=== PATIENT | female | born 1975 | race Two or more races ===

== ENCOUNTER → 2016-10-06 | Outpatient (CLI) | payer OTHER ==
--- NOTE | 2016-10-06 15:01 | RAD ---
EXAM: DIGITAL SCREEN BILAT W/CAD HISTORY: Routine Screening. COMPARISON: None available Standard mammographic views are obtained of the bilateral breasts. This study was interpreted with the benefit of Computerized Aided Detection (CAD). FINDINGS: The breast parenchyma Is heterogenously dense, which could reduce sensitivity of mammography. Breast parenchyma level III.. There is a faintly visualized cluster of calcifications within the right anterior breast just superior to the nipple. Within the left breast there is calcification seen scattered throughout the glandular tissue posterior and superior to the nipple. IMPRESSION: There are bilateral breast calcifications identified. There is no comparison available for review to assess whether these are new findings or chronic therefore would return for diagnostic mammogram of the bilateral breasts to further evaluate the regions of calcification. BI-RADS CATEGORY: 0 NEED ADD'L IMAGE/PRIOR MAMMO RECOMMENDED FOLLOW-UP: ADD ADDITIONAL IMAGING PQRS compliance statement: Patient information was entered into a reminder system with a target due date for the next mammogram. Mammography is a sensitive method for finding small breast cancers, but it does not detect them all and is not a substitute for careful clinical examination. A negative mammogram does not negate a clinically suspicious finding and should not result in delay in biopsying a clinically suspicious abnormality. "Our facility is accredited by the [employer] Mammography Program."
== END | disposition home or self-care (01) ==
LOC: MAMMO 14:23
PROVIDERS: ATTEND Nurse Practitioner
DX: Z12.31 Encounter for screening mammogram for malignant neoplasm of breast (principal)
CPT/HCPCS: G0202; 77067

== ENCOUNTER → 2016-10-23 | Outpatient (CLI) | payer OTHER ==
--- NOTE | 2016-10-24 13:44 | RAD ---
DATE: 10/23/2016 EXAM: DIGITAL DIAGNOSTIC BILATERAL HISTORY: Calcifications seen within both breasts on recent screening mammogram. COMPARISON: 10/06/2016 This study was interpreted with the benefit of Computerized Aided Detection (CAD ). FINDINGS: Spot compression magnification CC and true lateral digital mammograms of both breasts were obtained. Comparison study is dated 10/06/2016. Calcifications are seen scattered throughout the upper outer quadrants of both breasts. They have a probably benign appearance. No definite malignant- appearing calcifications are seen. IMPRESSION: Probably benign appearing calcifications are seen in the upper quadrants of both breasts. A repeat diagnostic mammogram of both breasts in 6 months is recommended to document their stability. BI-RADS CATEGORY: 3 PROBABLY BENIGN FINDING(S)-SHORT INTERVAL FOLLOW-UP SUGGESTED RECOMMENDED FOLLOW-UP: Diagnostic mammogram 6 months PQRS compliance statement: Patient information was entered into a reminder system with a target due date 04/25/2017 for the next mammogram. Mammography is a sensitive method for finding small breast cancers, but it does not detect them all and is not a substitute for careful clinical examination. A negative mammogram does not negate a clinically suspicious finding and should not result in delay in biopsying a clinically suspicious abnormality. "Our facility is accredited by the [employer] Mammography [employer]." MTDD
== END | disposition home or self-care (01) ==
LOC: MAMMO 12:43
PROVIDERS: ATTEND Nurse Practitioner
DX: R92.1 Mammographic calcification found on diagnostic imaging of breast (principal)
CPT/HCPCS: G0204; 77066